=== PATIENT | male | born 1950 | race Caucasian/White ===

== ENCOUNTER → 2018-03-02 | Outpatient (CLI) | payer BC ==
[~2018-03-02] MED LIST: ASPIRIN 81M81 MG/TA2 PO; GLUCOPHAGE500 MG/TAB PO; PRILOSEC 20MG20 MG PO; TOPROL XL 50MG50 MG PO; ZOCOR 40MG40 MG PO
== END ==
LOC: COL.RAD 08:47
DX: N43.3 Hydrocele, unspecified (principal); N50.9 Disorder of male genital organs, unspecified